=== PATIENT | female | born 1970 | race Caucasian/White ===

== ENCOUNTER 2017-01-17 19:53 | Emergency (ER) | payer OTHER ==
[~2017-01-17] VITALS: Ht 152.4 cm; Wt 77.1 kg
[~2017-01-17 19:53] MED LIST: MOTRIN PO
[2017-01-17 21:20] VITALS: BP 148/78
== END 2017-01-17 21:20 | disposition home or self-care (01) ==
LOC: ED 19:53
DX: G89.18 Other acute postprocedural pain (principal); R10.30 Lower abdominal pain, unspecified; N39.0 Urinary tract infection, site not specified; Z88.5 Allergy status to narcotic agent
CPT/HCPCS: J1885